=== PATIENT | female | born 1995 | race Hispanic/Latino ===

== ENCOUNTER 2021-11-04 16:58 | Emergency (ER) | payer MEDICARE ==
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
[2021-11-04 18:50] LABS: Basophils % (Auto) 0.6 % (0.0-1.8); Eosinophils % (Auto) 0.4 % (0.0-4.3); Hemoglobin 12.3 gm/dl (10.1-14.3); Lymphocytes % (Auto) 22.7 % (13.4-35.0); Mean Corpuscular HGB Conc 34 % (30-34); Mean Corpuscular Volume 83 fl (79-97); Monocytes # (Auto) 0.7 K/mm3 (0.0-0.8); Monocytes % (Auto) 8.6 % (0.0-7.3); Platelet Count 227 K/mm3 (140-440); Red Blood Count 4.33 M/mm3 (3.65-5.03)
[2021-11-04 18:56] LABS: Mucus,Urine FEW /HPF; RBC,Urine < 1.0 /HPF (0.0-6.0)
[2021-11-04 19:03] LABS: Bilirubin,Urine Negative (Negative); Blood,Urine Negative (Negative); Color,Urine Straw (Yellow); PH,Urine 5.5 (5.0-7.0); Protein,Urine <15 mg/dL mg/dL (Negative)
[2021-11-04 19:04] LABS: Urobilinogen,Urine < 2.0 mg/dL (<2.0)
[2021-11-04 19:05] LABS: Amphetamine Screen,Urine Negative; Benzodiazepines Screen,Urine Negative; Cannabinoid Screen,Urine Negative; Cocaine Screen,Urine Negative; Methadone Screen,Urine Negative; Opiate Screen,Urine Negative
[2021-11-04 19:06] LABS: Blood Urea Nitrogen 9 mg/dL (7-17); Calcium 8.8 mg/dL (8.4-10.2); Hemolysis Index 5
[2021-11-04 19:08] LABS: BUN/Creatinine Ratio 18
[2021-11-05 10:06] VITALS: BP 131/87
--- NOTE | 2021-11-05 10:47 | Consultation ---
History of Present Illness - Reason for Consult Consult date: 11/05/21 Reason for consult: agitation - History of Present Psychiatric Illness The patient was seen today. She is calm, and cooperative. She is polite. She appears to have some mental delay. She says she was brought for being aggressive at her half-way. The patient says she gets upset a lot. She says she has bipolar and schizophrenia. The patient could not recall her meds, but states she takes them everyday. She denies SI/HI or hallucinations of any kind. She is asking about doing group therapy while she's in the ER. REVIEW OF SYSTEMS Constitutional: Negative for weight loss ENT: Negative for stridor Respiratory: Negative for cough or hemoptysis All other systems reviewed and are negative MENTAL STATUS General Appearance and Behavior: age appropriate, good eye contact, cooperative with questioning and polite, calm, pleasant Cooperation: Cooperative Psychomotor Behavior: within normal limits Mood: okay Affect and affective range: Euthymic Thought Process: goal directed Thought Content: None Speech: Normal volume and Regular rate and rhythm Suicidal Ideation: Denies Homicidal Ideation: Denies HI Hallucinations: Denies Impulse Control: Impaired Insight and Judgment: Limited Memory: Normal Attention: Normal Orientation: alert and oriented Assessment Bipolar Disorder Treatment Plan d/c 1013 The patient to continue previously prescribed medication Medical: per primary Disposition: Do not recommend acute psychiatric inpatient treatment. The patient may return to her half-way once medically clear. The cold meat chef to give the patient all necessary resources She is to follow up with outpatient psych in 7 to 14 days upon discharge. Will sign off. Thanks. Case staffed with Dr. Reaves Medications and Allergies Allergies Allergy/AdvReac Type Severity Reaction Status Date / Time No Known Allergies Allergy Verified 11/04/21 17:11 Mental Status Exam - Vital signs Last Vital Signs Temp 98.7 F 11/05/21 10:04 Pulse 110 H 11/05/21 10:04 Resp 16 11/05/21 10:04 BP 131/87 11/05/21 10:04 Pulse Ox 99 11/05/21 10:06 Results Result Diagrams: 11/04/21 18:30 11/04/21 18:30 Abnormal lab results 11/04/21 11/04/21 11/04/21 Range/Units 18:30 18:30 18:30 Cottle % (Auto) 8.6 H (0.0-7.3) % Creatinine 0.5 L (0.6-1.2) mg/dL Glucose 101 H (65-100) mg/dL Salicylates < 0.3 L (2.8-20.0) mg/dL Acetaminophen (10.0-30.0) ug/mL 11/04/21 Range/Units 18:30 Cottle % (Auto) (0.0-7.3) % Creatinine (0.6-1.2) mg/dL Glucose (65-100) mg/dL Salicylates (2.8-20.0) mg/dL Acetaminophen 5.0 L (10.0-30.0) ug/mL All other labs normal.
== END 2021-11-05 19:48 ==
LOC: EEVIPCON 16:58 → ED 16:58
DX: R45.6 Violent behavior (principal); F31.9 Bipolar disorder, unspecified; Z20.822 Contact with and (suspected) exposure to COVID-19
CPT/HCPCS: 36415; 80048; 80307; 81001; 85025; 99285; U0003; 80320; G0480